=== PATIENT | male | born 1995 | race Caucasian/White ===

== ENCOUNTER 2017-08-20 20:27 | Observation (INO) | payer OTHER ==
[~2017-08-20] VITALS: Ht 180.3 cm; Wt 68.0 kg
[2017-08-20 20:40] VITALS: BP 123/65; PULSE 114; RESP 20; TEMP 98.3; O2SAT 100
[2017-08-20] MEDS ORDERED: SODIUM CHLORIDE 0.9% FLUSH 10 ML FLUSH IVF PRN (21:00)
[2017-08-20 21:01] VITALS: RESP 19; O2SAT 98
[2017-08-20] MEDS ORDERED: LORazepam 2 MG/ML VIAL IV PUSH PRN (21:30)
[2017-08-20] MEDS ORDERED: SODIUM CHLORIDE 0.9% FLUSH 10 ML FLUSH IV FLUSH PRN (21:30)
[2017-08-20] MEDS ORDERED: NALOXONE HCL 0.4 MG/ML AMP IV PUSH PRN (21:30)
[2017-08-20] MEDS ORDERED: levETIRAcetam INJ 100 ML IV ONE (21:30)
[2017-08-20 21:56] LABS: AUTOMATED NEUTROPHIL # 5.6 TH/MM3 (1.8-7.7); BASOPHIL % 0.2 % (0.0-2.0); EOSINOPHIL # 0.1 TH/MM3 (0-0.4); EOSINOPHIL % 0.8 % (0.0-4.0); HEMATOCRIT 40.1 % (39.0-51.0); HEMOGLOBIN 13.8 GM/DL (13.0-17.0); LYMPH % 23.4 % (9.0-44.0); LYMPHOCYTE # 1.9 TH/MM3 (1.0-4.8); MEAN CELL VOLUME 87.7 FL (80.0-100.0); MEAN CORPUSCULAR HEMOGLOBIN 30.2 PG (27.0-34.0); MEAN CORPUSCULAR HGB CONC 34.5 % (32.0-36.0); MEAN PLATELET VOLUME 8.2 FL (7.0-11.0); MONO % 6.7 % (0.0-8.0); MONOCYTE # 0.5 TH/MM3 (0-0.9); NEUT % 68.9 % (16.0-70.0); PLATELET COUNT 320 TH/MM3 (150-450); RED BLOOD COUNT 4.57 MIL/MM3 (4.50-5.90); RED CELL DISTRIBUTION WIDTH 12.7 % (11.6-17.2); WHITE BLOOD COUNT 8.1 TH/MM3 (4.0-11.0)
--- NOTE | 2017-08-20 22:04 | PD ---
HPI . 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 Patient was working out in the gym, when the locker room and subsequently had a seizure. No head injury. Patient states he feels fine now. Short postictal phase as noted by bystanders. Patient denies having headache or any signs of head injury, any visual changes other than his normal as noted above, no focal weakness numbness or tingling, no incontinence, tongue biting. patient had no prodromal illnesses head injuries, headache. No family history of seizures. [facility] Past Medical History Narrative Medical Past medical history reviewed Diminished Hearing: No Neurologic: Yes (OCULAR MOTOR APRAXIA) Seizures: Yes Tetanus Vaccination: > 5 Years Influenza Vaccination: No Social History Alcohol Use: No Tobacco Use: No Substance Use: No Allergies-Medications (Allergen,Severity, Reaction): Coded Allergies: No Known Allergies (Unverified , 08/20/17) Narrative Medication Allergies and medications reviewed Review of Systems Except as stated in HPI: all other systems reviewed are Neg General / Constitutional: No: Fever Eyes: No: Visual changes HENT: No: Headaches Cardiovascular: No: Chest Pain or Discomfort Respiratory: No: Shortness of Breath Gastrointestinal: No: Abdominal Pain Genitourinary: No: Dysuria Musculoskeletal: No: Pain Skin: No Rash Neurologic: Positive: Seizures, No: Weakness, Incontinence Psychiatric: No: Depression Endocrine: No: Polydipsia Hematologic/Lymphatic: No: Easy Bruising Physical Exam Narrative GENERAL: Awake alert oriented 3 no acute distress. SKIN: Warm and dry. Color is normal no diaphoresis cyanosis or pallor HEAD: Atraumatic. Normocephalic. EYES: Pupils equal and round. No scleral icterus. No injection or drainage. 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 No change as per patient ENT: No nasal bleeding or discharge. Mucous membranes pink and moist. TMs clear 2 NECK: Trachea midline. No JVD. Supple nontender full range of motion CARDIOVASCULAR: Regular rate and rhythm. S1-S2 no murmurs or gallops RESPIRATORY: No accessory muscle use. Clear to auscultation. Breath sounds equal bilaterally. GASTROINTESTINAL: Abdomen soft, non-tender, nondistended. Hepatic and splenic margins not palpable. MUSCULOSKELETAL: Extremities without clubbing, cyanosis, or edema. No obvious deformities. NEUROLOGICAL: Awake and alert. No obvious cranial nerve deficits. Motor grossly within normal limits. Five out of 5 muscle strength in the arms and legs. Normal speech. PSYCHIATRIC: Appropriate mood and affect; insight and judgment normal. Data Data Last Documented VS Vital Signs Date Time Temp Pulse Resp B/P (MAP) Pulse Ox O2 Delivery O2 Flow Rate FiO2 08/20/17 21:01 19 98 Room Air 08/20/17 20:40 98.3 114 123/65 (84) Orders Orders Complete Blood Count With Diff (08/20/17 20:58) Blood Glucose (08/20/17 20:58) Ecg Monitoring (08/20/17 20:58) Iv Access Insert/Monitor (08/20/17 20:58) Oximetry (08/20/17 20:58) Comprehensive Metabolic Panel (08/20/17 20:58) Sodium Chloride 0.9% Flush (Ns Flush) (08/20/17 21:00) Ua Includes Microscopic (08/20/17 20:58) Thyroid Stimulating Hormone (08/20/17 21:02) Mri Brain W&W/O Contrast (08/20/17 ) Mra Brain W/O Contrast (Cow) (08/20/17 ) Eeg Study (08/20/17 ) Levetiracetam Inj (Keppra Inj) (08/20/17 21:30) Consult Neurology (08/20/17 ) Admit Order (Ed Use Only) (08/20/17 21:26) Labs Laboratory Tests Test 08/20/17 21:05 [facility] Medical Decision Making Medical Screen Exam Complete: Yes Emergency Medical Condition: Yes Medical Record Reviewed: Yes Differential Diagnosis Ocular motor apraxia, new onset seizures Narrative Course New-onset seizures as noted above, discussed with Dr. Michael bryant from neurology. Care plan developed, MRI brain with and without contrast, MRA brain without, EEG. Load with Keppra 1 g IV piggyback. Care plan discussed with patient who is amenable to same.Contraindications for MRI discussed and screening performed by SHAGUFTA Hilton Case discussed with hospitalist service, admitted under observation status Diagnosis Primary Impression: New onset seizure Admitting Information Admitting Physician Requests: Observation Condition: Rajiv Cyr MD Aug 20, 2017 22:04
[2017-08-20 22:47] LABS: ALBUMIN 4.1 GM/DL (3.4-5.0); AST (GOT) 20 U/L (15-37); BICARBONATE 26.5 MEQ/L (21.0-32.0); BLOOD UREA NITROGEN 15 MG/DL (7-18); CALCIUM 8.8 MG/DL (8.5-10.1); CHLORIDE 104 MEQ/L (98-107); CREATININE 1.01 MG/DL (0.60-1.30); GLOMERULAR FILTRATION RATE 93 ML/MIN (>89); GLUCOSE,RANDOM 92 MG/DL (74-106); SODIUM (NA) 139 MEQ/L (136-145)
--- NOTE | 2017-08-20 22:47 | RADRPT ---
EXAM DATE/TIME: 08/20/2017 22:04 [facility] COMPARISON: No previous studies available for comparison. INDICATIONS : Seizures. New onset seizures. MEDICAL HISTORY : Oculomotor apraxia. SURGICAL HISTORY : Knee. ENCOUNTER: Initial ACUITY: 1 day PAIN SCORE: 0/10 LOCATION: cranial Please note a normal MRA of the brain does not entirely exclude the possibility of a small aneurysm, nor the possibility of distal intracranial vessel disease. TECHNIQUE: 3D time of flight MRA was performed. Source images, multiplanar STS MIP, and 3D volume MIP reconstru ctions were reviewed. FINDINGS: There is excellent visualization of the major intracranial arteries out to the second-order branch ve ssels. There is no evidence for aneurysm, vessel truncation or stenosis, and no evidence for vascula r malformation. CONCLUSION: Normal examination. Nick Vega Jr., MD on August 20, 2017 at 22:42 Board Certified Radiologist. This report was verified electronically.
--- NOTE | 2017-08-20 22:49 | RADRPT ---
EXAM DATE/TIME: 08/20/2017 22:04 [facility] COMPARISON: No previous studies available for comparison. INDICATIONS : Seizures. New onset seizures. MEDICAL HISTORY : Oculomotor apraxia. SURGICAL HISTORY : Knee. ENCOUNTER: Initial ACUITY: 1 day PAIN SCORE: 0/10 LOCATION: cranial TECHNIQUE: Multiplanar, multisequence MRI of the brain was performed without contrast. FINDINGS: CEREBRUM: The ventricles are normal for age. No evidence of midline shift, mass lesion, hemorrhage or acute in farction. No extraaxial fluid collections are seen. The pituitary gland and suprasellar cistern are normal in configuration. WHITE MATTER: No significant signal abnormalities are seen in the white matter. POSTERIOR FOSSA: The cerebellum and brainstem are intact. The 4th ventricle is midline. The cerebellopontine angle is unremarkable. The cerebellar tonsils are normal in position. DIFFUSION IMAGING: No focal areas of restricted diffusion are seen. No evidence of acute infarction. EXTRACRANIAL: The visualized portions of the orbits and paranasal sinuses are unremarkable. CONCLUSION: Normal examination. Nick Vega Jr., MD on August 20, 2017 at 22:44 Board Certified Radiologist. This report was verified electronically.
[2017-08-20 22:50] LABS: ALKALINE PHOSPHATASE 69 U/L (45-117); ALT (GPT) 33 U/L (12-78); TOTAL BILIRUBIN ADULT 0.3 MG/DL (0.2-1.0); TOTAL PROTEIN 7.5 GM/DL (6.4-8.2)
[2017-08-20 23:26] VITALS: BP 134/70; PULSE 103; RESP 16; TEMP 97.6; O2SAT 98
[2017-08-20 23:33] LABS: BILIRUBIN, URINE NEG (NEG); BLOOD, URINE NEG (NEG); GLUCOSE,URINE NEG (NEG); KETONE, URINE NEG (NEG); MUCUS URINE FEW /lpf (OCC); NITRITE,URINE NEG (NEG); URINE COLOR LIGHT-YELLOW (YELLW/STRAW); URINE LEUKOCYTE ESTERASE NEG (NEG)
[2017-08-20 23:35] VITALS: PULSE 103
--- NOTE | 2017-08-21 04:19 | HHI.HP ---
HPI Service [facility] Primary Care Physician No Primary Care Physician Admission Diagnosis New onset Seizures Diagnoses: Travel History International Travel<30 Days: No Contact w/Intl Traveler <30 Da: No Traveled to Known Affected Are: No History of Present Illness History from patient, ER physician communication, and review of medical records. had seizure at gym stated he was not doing anything then- not exercising or weight lifting no aura was told he had seizure no recollection of it bit his tongue no urinary or bowel incontinence no prior hx of seizure a week ago, had fever little cough then but no sinus symptoms no urine or bowel problems took otc fever meds, no antbiotiocs Review of Systems Except as stated in HPI: all other systems reviewed are Neg Past Family Social History Past Medical History occulomotor apraxia with speech impediment alone as the manifestation according to patient Past Surgical History left acl removed Allergies: Coded Allergies: No Known Allergies (Unverified , 08/20/17) Family History none that he knows of Social History no smoking/ etoh abuse/ drug abuse Physical Exam Vital Signs Vital Signs Date Time Temp Pulse Resp B/P (MAP) Pulse Ox O2 Delivery O2 Flow Rate FiO2 08/20/17 23:35 103 08/20/17 23:26 97.6 103 16 134/70 (91) 98 08/20/17 21:01 19 98 Room Air 08/20/17 20:50 100 Room Air 08/20/17 20:40 98.3 114 20 123/65 (84) 100 Physical Exam GENERAL: This is a well-nourished, well-developed patient, in no apparent distress. SKIN: No rashes, ecchymoses or lesions. Cool and dry. HEAD: Atraumatic. Normocephalic. No temporal or scalp tenderness. EYES: Pupils equal round and reactive. Extraocular motions intact. No scleral icterus. No injection or drainage. ENT: Nose without bleeding, purulent drainage or septal hematoma. Airway patent. NECK: Trachea midline. No JVD or lymphadenopathy. Supple, nontender, no meningeal signs. CARDIOVASCULAR: Regular rate and rhythm without murmurs, gallops, or rubs. RESPIRATORY: Clear to auscultation. Breath sounds equal bilaterally. No wheezes , rales, or rhonchi. GASTROINTESTINAL: Abdomen soft, non-tender, nondistended. No guarding. MUSCULOSKELETAL: Extremities without clubbing, cyanosis, or edemaNo calf tenderness. NEUROLOGICAL: Awake and alert. Motor and sensory grossly within normal limits. Normal speech. Laboratory Laboratory Tests Test 08/20/17 21:05 08/20/17 23:07 White Blood Count 8.1 Red Blood Count 4.57 Hemoglobin 13.8 Hematocrit 40.1 Mean Corpuscular Volume 87.7 Mean Corpuscular Hemoglobin 30.2 Mean Corpuscular Hemoglobin Concent 34.5 Red Cell Distribution Width 12.7 Platelet Count 320 Mean Platelet Volume 8.2 Neutrophils (%) (Auto) 68.9 Lymphocytes (%) (Auto) 23.4 Monocytes (%) (Auto) 6.7 Eosinophils (%) (Auto) 0.8 Basophils (%) (Auto) 0.2 Neutrophils # (Auto) 5.6 Lymphocytes # (Auto) 1.9 Monocytes # (Auto) 0.5 Eosinophils # (Auto) 0.1 Basophils # (Auto) 0.0 CBC Comment DIFF FINAL Differential Comment Blood Urea Nitrogen 15 Creatinine 1.01 Random Glucose 92 Total Protein 7.5 Albumin 4.1 Calcium Level 8.8 Alkaline Phosphatase 69 Aspartate Amino Transf (AST/SGOT) 20 Alanine Aminotransferase (ALT/SGPT) 33 Total Bilirubin 0.3 Sodium Level 139 Potassium Level 3.7 Chloride Level 104 Carbon Dioxide Level 26.5 Anion Gap 9 Estimat Glomerular Filtration Rate 93 Thyroid Stimulating Hormone 3rd Gen 2.070 Urine Color LIGHT-YELLOW Urine Turbidity CLEAR Urine pH 5.0 Urine Specific [place] 1.007 Urine Protein NEG Urine Glucose (UA) NEG Urine Ketones NEG Urine Occult Blood NEG Urine Nitrite NEG Urine Bilirubin NEG Urine Urobilinogen LESS THAN 2.0 Urine Leukocyte Esterase NEG Urine WBC 1 Urine Mucus FEW Microscopic Urinalysis Comment CULT NOT INDICATED Result Diagram: 08/20/17210408/20/172104 Imaging Last 48 hours Impressions Head Magnetic Resonance Angiography 08/20/17 0000 Signed Impressions: Service Date/Time: Sunday, August 20, 2017 22:04 - CONCLUSION: Normal examination. Nick Vega Jr., MD Brain MRI 08/20/17 0000 Signed Impressions: Service Date/Time: Sunday, August 20, 2017 22:04 - CONCLUSION: Normal examination. MD Israel Quezada Jr. VTE Risk Assessment Caprini VTE Risk Assessment: Mod/High Risk (score >= 2) Caprini Risk Assessment Model Point Value = 1 Point Value = 2 Point Value = 3 Point Value = 5 Age 41-60 Minor surgery BMI > 25 kg/m2 Swollen legs Varicose veins or History of unexplained or recurrent spontaneous Oral contraceptives or hormone replacement Sepsis (< 1 month) Serious lung disease, including pneumonia (< 1 month) Abnormal pulmonary function Acute myocardial infarction Congestive heart failure (< 1 month) History of inflammatory bowel disease Medical patient at bed rest Age 61-74 Arthroscopic surgery Major open surgery (> 45 min) Laparoscopic surgery (> 45 min) Malignancy Confined to bed (> 72 hours) Immobilizing plaster cast Central venous access Age >= 75 History of VTE Family history of VTE Factor V Leiden Prothrombin [id number] Lupus anticoagulant Anticardiolipin antibodies Elevated serum homocysteine Heparin-induced thrombocytopenia Other congenital or acquired thrombophilia Stroke (< 1 month) Elective arthroplasty Hip, pelvis, or leg fracture Acute spinal cord injury (< 1 month) Prophylaxis Regimen Total Risk Factor Score Risk Level Prophylaxis Regimen 0-1 Low Early ambulation 2 Moderate Order ONE of the following: *Sequential Compression Device (SCD) *Heparin 5000 units SQ BID 3-4 Higher Order ONE of the following medications: *Heparin 5000 units SQ TID *Enoxaparin/Lovenox 40 mg SQ daily (WT < 150 kg, CrCl > 30 mL/min) *Enoxaparin/Lovenox 30 mg SQ daily (WT < 150 kg, CrCl > 10-29 mL/min) *Enoxaparin/Lovenox 30 mg SQ BID (WT < 150 kg, CrCl > 30 mL/min) AND/OR *Sequential Compression Device (SCD) 5 or more Highest Order ONE of the following medications: *Heparin 5000 units SQ TID (Preferred with Epidurals) *Enoxaparin/Lovenox 40 mg SQ daily (WT < 150 kg, CrCl > 30 mL/min) *Enoxaparin/Lovenox 30 mg SQ daily (WT < 150 kg, CrCl > 10-29 mL/min) *Enoxaparin/Lovenox 30 mg SQ BID (WT < 150 kg, CrCl > 30 mL/min) AND *Sequential Compression Device (SCD) Assessment and Plan Assessment and Plan Impression: New-onset witnessed seizure with tongue bite History of oculomotor apraxia with speech impediment Plan: Seizure precautions. Ativan when necessary for seizures. EEG in a.m. Brain MRI and MRA of the brain reports personally reviewed. No evidence of mass /hemorrhage/edema. Neurology Consult. Patient was loaded with Keppra in ER. Continue Keppra 500 mg by mouth every 12 hours. No driving for next 6 months. Patient is explained. DVT prophylaxis with ambulation. Discussed Condition With Patient, ER physician, nursing staff Diamond De Souza MD Aug 21, 2017 04:19
[2017-08-21 04:39] VITALS: BP 126/60; PULSE 88; RESP 17; TEMP 97.7; O2SAT 99
[2017-08-21 08:00] VITALS: PULSE 89
--- NOTE | 2017-08-21 08:04 | HHI.PR ---
Subjective Remarks Follow up on patient with seizure. Patient seen and examined. Patient asleep but easily awakens to voice. He denies any recurrence of seizure activity. States he feels well. Denies any complaints. Denies any headache, vision changes, lightheadedness, dizziness, palpitations, chest pain or shortness of breath. Denies any nausea, vomiting or abdominal pain. States he has no previous history of seizure disorder. Denies any fever or chills. Does report history of upper respiratory infection with a fever about a week ago. Objective Vitals Vital Signs Date Time Temp Pulse Resp B/P (MAP) Pulse Ox O2 Delivery O2 Flow Rate FiO2 08/21/17 04:39 97.7 88 17 126/60 (82) 99 08/20/17 23:35 103 08/20/17 23:26 97.6 103 16 134/70 (91) 98 08/20/17 21:01 19 98 Room Air 08/20/17 20:50 100 Room Air 08/20/17 20:40 98.3 114 20 123/65 (84) 100 I/O 08/20/17 08/20/17 08/20/17 08/21/17 08/21/17 08/21/17 07:00 15:00 23:00 07:00 15:00 23:00 Output Total 600 ml Balance -600 ml Output Urine Total 600 ml Result Diagram: 08/20/17210408/20/172104 Imaging Last Impressions Head Magnetic Resonance Angiography 08/20/17 0000 Signed Impressions: Service Date/Time: Sunday, August 20, 2017 22:04 - CONCLUSION: Normal examination. Nick Vega Jr., MD Brain MRI 08/20/17 0000 Signed Impressions: Service Date/Time: Sunday, August 20, 2017 22:04 - CONCLUSION: Normal examination. Nick Vega Jr., MD Objective Remarks GENERAL: Well-nourished, well-developed young male patient in NAD. Awake and alert. SKIN: Warm and dry. No rash. HEAD: Normocephalic. Atraumatic. EYES: PERRLA. No scleral icterus. No injection or drainage. ENT: No nasal bleeding or discharge. Mucous membranes pink and moist. NECK: Supple. Trachea midline. CARDIOVASCULAR: Regular rate and rhythm. S1, S2 noted. No murmur appreciated. RESPIRATORY: Nonlabored. Clear to auscultation. Breath sounds equal bilaterally. GASTROINTESTINAL: Abdomen soft, non-tender, nondistended. Normoactive bowel sounds x4. MUSCULOSKELETAL: No obvious deformities. Extremities without clubbing, cyanosis , or edema. NEUROLOGICAL: Awake and alert. Able to move all extremities spontaneously. No focal neurologic findings appreciated. Motor and sensory function intact. Slight speech impediment. PSYCHIATRIC: Appropriate mood and affect; insight and judgment normal. Medications and IVs Current Medications Medications (Trade) Dose Ordered Sig/Julieta Route Start Time Stop Time Status Last Admin (NS Flush) 2 ml UNSCH PRN IVF 08/20/17 21:00 (NS Flush) 2 ml UNSCH PRN IV FLUSH 08/20/17 21:30 (NS Flush) 2 ml BID IV FLUSH 08/21/17 09:00 (Narcan Inj) 0.4 mg UNSCH PRN IV PUSH 08/20/17 21:30 (Ativan Inj) 1 mg Q15M PRN IV PUSH 08/20/17 21:30 A/P Assessment and Plan New onset seizure - Neurology consulted, appreciate recommendations - EEG study - given loading dose of Keppra in the ED. Continue on Keppra 500mg BID - no driving x 6 months - Ativan prn seizure activity - seizure precautions DVT prophylaxis - bilateral SCD/MAYELA hose Patient cleared for discharge from neurology standpoint Discharge patient to home Condition on discharge: Improved Regular Diet as tolerated Ad Kristina activity NO driving, climbing heights, swimming alone or caring for young children unassisted for at least 6 months Follow-up with primary care physician and neurology Scarlett Camacho Aug 21, 2017 08:04
[2017-08-21 08:26] VITALS: BP 136/67; PULSE 89; RESP 16; TEMP 97.6; O2SAT 99
[2017-08-21] MEDS ORDERED: SODIUM CHLORIDE 0.9% FLUSH 10 ML FLUSH IV FLUSH SCH (09:00)
[2017-08-21] MEDS ORDERED: levETIRAcetam 500 MG TAB PO ONE (09:45)
[2017-08-21] MEDS ORDERED: LEVE500 PO (11:08)
[2017-08-21 12:00] VITALS: BP 131/64; PULSE 99; RESP 15; TEMP 98.7; O2SAT 98
--- NOTE | 2017-08-21 15:37 | MB ---
cc: NORMA STAFFORD M.D. DATE OF CONSULTATION 08/21/2017 DATE OF 1995 REASON FOR CONSULTATION Seizure. HISTORY OF PRESENT ILLNESS The patient is a 22-year-old male, student at [employer], who apparently had a seizure while at the gym. He states he was not doing anything exerting but had a seizure, woke up, there was no one there to witness it, and he called for 911. He did bite his tongue. No urinary or bowel incontinence. He denies any history of epilepsy. He denies any family history of epilepsy. Denies any head trauma. He states he had a respiratory infection about a week ago and was using some NyQuil which he has not used in quite a few days. He denies any drug abuse. He states he lives on campus and has a roommate. He denies being sleep deprived. PAST MEDICAL HISTORY Ocular motor apraxia with speech impediment. PAST SURGICAL HISTORY Left ACL surgery. ALLERGIES None reported. FAMILY HISTORY Noncontributory per patient. SOCIAL HISTORY Does not smoke, use drugs or drink. MEDICATIONS Just NyQuil about a week ago. PHYSICAL EXAMINATION VITAL SIGNS: He has been afebrile. Temperature currently 98.7, pulse 99, respiratory rate 15, blood pressure 131/64, satting 98% on room air. NECK: Supple. I do not appreciate any bruits. HEART: Regular. NEUROLOGIC: He is awake, alert and oriented. He does have a speech impediment. He is able to move his eyes but difficulty following. His pupils are reactive. Face symmetrical otherwise. There is a mild abrasion over the right lateral tongue. Motor-joseph no drift, no leg lag. Cerebellar normal. Toes downgoing. DTRs are 1-2+. Sensory normal. Gait is withheld. LABORATORY His labs are reviewed. CBC is normal. Chemistries are intact. TSH is normal. Urine is negative. There is no urine drug screen. IMAGING Brain MRI: Normal exam. MRA [place] was normal as well. EEG EEG was completed. I do not have the report thus far. IMPRESSION Likely new onset seizure in a 22-year-old male. Etiology at this point is unknown, may be medicine related due to the NyQuil, however, he denies taking it recently. PLAN/RECOMMENDATIONS Recommendations are to have him discharged home without any medication for this one event. He is not to drive at least for six months, not to swim alone, climb heights, etc. He is to see me in 1-2 weeks in the office for follow-up. Anticipate discharge this afternoon. The EEG was just completed. MD ALENA Mcintyre/INDRA /2:30 PM /3:01 PM
[2017-08-21] MEDS ORDERED: levETIRAcetam 500 MG TAB PO SCH (21:00)
--- NOTE | 2017-08-21 21:35 | MG ---
cc: BRITTNY LOJA Lab No: Date: 08/21/2017 Age: Sex: M Race: ELECTROENCEPHALOGRAM NUMBER [id number] INTRODUCTION A 22-year-old, ocular motor apraxia. Keppra. A 9 Hz, 60 microvolt symmetric posterior rhythm is noted. The recording overall is synchronous and symmetric. There were no hemisphere asymmetries. Photic stimulation was performed without significant posterior driving. Hyperventilation was performed without significant change in the background. IMPRESSION Normal awake EEG. No evidence for a focal or diffuse abnormality. MD DORYS Corbin/BYRON /6:06 PM /9:13 PM
== END 2017-08-21 11:07 | disposition home or self-care (01) ==
LOC: NEPC 20:27 → NEDA 21:28 → NEDH 08-21 02:07
PROVIDERS: ADMIT Hospitalist; ATTEND Hospitalist
DX: R56.9 Unspecified convulsions (principal)
CPT/HCPCS: 70544; 70551; 80053; 81001; 84443; 85025; 95819; 96365; 99285; G0378; J1953

== ENCOUNTER 2017-08-30 06:28 | Emergency (ER) | payer OTHER ==
[~2017-08-30] VITALS: Ht 182.9 cm; Wt 68.0 kg
[2017-08-30 06:39] VITALS: BP 141/64; PULSE 120; RESP 16; TEMP 98.2; O2SAT 99
[2017-08-30 07:10] LABS: AUTOMATED NEUTROPHIL # 3.5 TH/MM3 (1.8-7.7); BASOPHIL % 0.6 % (0.0-2.0); EOSINOPHIL # 0.1 TH/MM3 (0-0.4); EOSINOPHIL % 1.4 % (0.0-4.0); HEMATOCRIT 42.1 % (39.0-51.0); HEMOGLOBIN 14.1 GM/DL (13.0-17.0); LYMPH % 39.1 % (9.0-44.0); LYMPHOCYTE # 2.7 TH/MM3 (1.0-4.8); MEAN CELL VOLUME 88.7 FL (80.0-100.0); MEAN CORPUSCULAR HEMOGLOBIN 29.8 PG (27.0-34.0); MEAN CORPUSCULAR HGB CONC 33.6 % (32.0-36.0); MEAN PLATELET VOLUME 8.4 FL (7.0-11.0); MONO % 7.9 % (0.0-8.0); MONOCYTE # 0.5 TH/MM3 (0-0.9); PLATELET COUNT 310 TH/MM3 (150-450); RED BLOOD COUNT 4.74 MIL/MM3 (4.50-5.90); RED CELL DISTRIBUTION WIDTH 13.1 % (11.6-17.2); WHITE BLOOD COUNT 6.9 TH/MM3 (4.0-11.0)
[2017-08-30 07:22] LABS: BICARBONATE 23.4 MEQ/L (21.0-32.0); CALCIUM 8.8 MG/DL (8.5-10.1); CREATININE 0.97 MG/DL (0.60-1.30)
--- NOTE | 2017-08-30 07:43 | PD ---
HPI Chief Complaint: Seizure Time Seen by Provider: 07:20 Travel History International Travel<30 days: No Contact w/Intl Traveler<30days: No Traveled to known affect area: No History of Present Illness HPI The patient had sudden onset of [tonic clonic] seizure activity [just] prior to arrival. The seizure activity lasted [about a 2 minutes]. This was witnessed by [roommate]. The patient fully lost consciousness, but then gradually regained the usual mental status. The patient complains of [mild] headache and feels somewhat tired, but denies skeletal injuries or any other significant pain. There was [no] tongue biting and [no] incontinence. The patient denies any numbness or focal weakness now. patient denies ingestion or taking any medications currently. patient is an [employer] student who was seen and worked up/admitted to [facility] [place] on mid august for new onset seizure by Dr childers, no medications were started then. PFSH Past Medical History Diminished Hearing: No Neurologic: Yes (OCULAR MOTOR APRAXIA) Seizures: Yes Social History Alcohol Use: No Tobacco Use: No Substance Use: No Allergies-Medications (Allergen,Severity, Reaction): Coded Allergies: No Known Allergies (Unverified , 08/20/17) Reported Meds & Prescriptions Reported Meds & Active Scripts Active No Active Prescriptions or Reported Medications Review of Systems Except as stated in HPI: all other systems reviewed are Neg Neurologic: Positive: Seizures Physical Exam Narrative GENERAL: SKIN: Warm and dry. small puncture wound on right eyebrow HEAD: Atraumatic. Normocephalic. EYES: Pupils equal and round. No scleral icterus. No injection or drainage. ENT: No nasal bleeding or discharge. Mucous membranes pink and moist. no tongue laceration NECK: Trachea midline. No JVD. CARDIOVASCULAR: Regular rate and rhythm. RESPIRATORY: No accessory muscle use. Clear to auscultation. Breath sounds equal bilaterally. GASTROINTESTINAL: Abdomen soft, non-tender, nondistended. MUSCULOSKELETAL: Extremities without clubbing, cyanosis, or edema. No obvious deformities. NEUROLOGICAL: Awake and alert. No obvious cranial nerve deficits. Motor grossly within normal limits. Five out of 5 muscle strength in the arms and legs. speech impediment (chronic). PSYCHIATRIC: Appropriate mood and affect; insight and judgment normal. Data Data Last Documented VS Vital Signs Date Time Temp Pulse Resp B/P (MAP) Pulse Ox O2 Delivery O2 Flow Rate FiO2 1/26/18 08:01 108 16 124/64 (84) 99 Room Air 08/30/17 06:58 2.00 08/30/17 06:39 98.2 Orders Orders Blood Glucose (08/30/17 06:42) Oximetry (08/30/17 06:42) Iv Access Insert/Monitor (08/30/17 06:42) Ecg Monitoring (08/30/17 06:42) Oxygen Administration (08/30/17 06:42) Basic Metabolic Panel (Bmp) (08/30/17 06:42) Complete Blood Count With Diff (08/30/17 06:42) Drug Screen, Random Urine (08/30/17 06:42) Urinalysis - C+S If Indicated (08/30/17 06:42) Ct Brain W/O Iv Contrast(Rout) (08/30/17 ) Ct Cerv Spine W/O Contrast (08/30/17 07:21) Levetiracetam Inj (Keppra Inj) (08/30/17 09:00) Labs Laboratory Tests Test 08/30/17 06:45 08/30/17 09:40 White Blood Count 6.9 TH/MM3 Red Blood Count 4.74 MIL/MM3 Hemoglobin 14.1 GM/DL Hematocrit 42.1 % Mean Corpuscular Volume 88.7 FL Mean Corpuscular Hemoglobin 29.8 PG Mean Corpuscular Hemoglobin Concent 33.6 % Red Cell Distribution Width 13.1 % Platelet Count 310 TH/MM3 Mean Platelet Volume 8.4 FL Neutrophils (%) (Auto) 51.0 % Lymphocytes (%) (Auto) 39.1 % Monocytes (%) (Auto) 7.9 % Eosinophils (%) (Auto) 1.4 % Basophils (%) (Auto) 0.6 % Neutrophils # (Auto) 3.5 TH/MM3 Lymphocytes # (Auto) 2.7 TH/MM3 Monocytes # (Auto) 0.5 TH/MM3 Eosinophils # (Auto) 0.1 TH/MM3 Basophils # (Auto) 0.0 TH/MM3 CBC Comment DIFF FINAL Differential Comment Blood Urea Nitrogen 20 MG/DL Creatinine 0.97 MG/DL Random Glucose 92 MG/DL Calcium Level 8.8 MG/DL Sodium Level 141 MEQ/L Potassium Level 3.9 MEQ/L Chloride Level 108 MEQ/L Carbon Dioxide Level 23.4 MEQ/L Anion Gap 10 MEQ/L Estimat Glomerular Filtration Rate 98 ML/MIN Urine Color YELLOW Urine Turbidity CLEAR Urine pH 5.5 Urine Specific [place] 1.024 Urine Protein TRACE mg/dL Urine Glucose (UA) NEG mg/dL Urine Ketones TRACE mg/dL Urine Occult Blood NEG Urine Nitrite NEG Urine Bilirubin NEG Urine Urobilinogen LESS THAN 2.0 MG/DL Urine Leukocyte Esterase NEG Urine WBC 1 /hpf Urine Squamous Epithelial Cells <1 /hpf Urine Mucus FEW /lpf Microscopic Urinalysis Comment CULT NOT INDICATED MDM Medical Decision Making Medical Screen Exam Complete: Yes Emergency Medical Condition: Yes Medical Record Reviewed: Yes Differential Diagnosis seizure activity v ich v skull fx v neck fx v neck dislocation Narrative Course normal cbc and electrolytes....patient had previously had EEG, MRI/MRA of brain which were neg as part of his midjanuary new seizure workup.....today ct head/ neck performed due to fall and bht post seizure did not show any ich/skull fx/ neck fx Physician Communication Physician Communication dr childers called to ask about any additions to medication, will start on keppra empirically. Diagnosis Primary Impression: New onset seizure Referrals: Brianne Childers MD make follow up appointment in the next week or so to adjust your keppra Patient Instructions: General Instructions, New-Onset Seizure in Adults (ED) Additional Instructions: today you are started on an antiseizure medicine called keppra. it has to be adjusted and monitored so you need to see Dr Childers within 14 days. Again as previously explained by Dr childers, no swimming, no driving, no operating heavy machinery for now. Your small cut does not require stitches Scripts Levetiracetam (Keppra) 500 Mg Tab 500 MG PO BID for Control Seizures, #30 TAB 0 Refills Prov: Candido Lujan MD 08/30/17 Disposition: 01 DISCHARGE HOME Condition: Stable Candido Lujan MD Aug 30, 2017 07:43
[2017-08-30 08:01] VITALS: BP 124/64; PULSE 108; RESP 16; O2SAT 99
--- NOTE | 2017-08-30 08:18 | RADRPT ---
EXAM DATE/TIME: 08/30/2017 08:04 [facility] COMPARISON: No previous studies available for comparison. INDICATIONS : Seizure today. RADIATION DOSE: 40.96 CTDIvol (mGy) MEDICAL HISTORY : Seizures. SURGICAL HISTORY : None. ENCOUNTER: Initial ACUITY: 1 day PAIN SCALE: 0/10 LOCATION: cranial TECHNIQUE: Multiple contiguous axial images were obtained of the head. Using automated exposure control and adj ustment of the mA and/or kV according to patient size, radiation dose was kept as low as reasonably a chievable to obtain optimal diagnostic quality images. DICOM format image data is available electro nically for review and comparison. FINDINGS: CEREBRUM: The ventricles are normal for age. No evidence of midline shift, mass lesion, hemorrhage or acute in farction. No extra-axial fluid collections are seen. POSTERIOR FOSSA: The cerebellum and brainstem are intact. The 4th ventricle is midline. The cerebellopontine angle i s unremarkable. EXTRACRANIAL: The visualized portion of the orbits is intact. There is right supraorbital soft tissue swelling. No underlying fracture. SKULL: The calvaria is intact. No evidence of skull fracture. CONCLUSION: 1. No acute intracranial abnormality. 2. Right supraorbital soft tissue swelling. Nick Vega Jr., MD on August 30, 2017 at 8:15 Board Certified Radiologist. This report was verified electronically.
--- NOTE | 2017-08-30 08:26 | RADRPT ---
EXAM DATE/TIME: 08/30/2017 08:04 [facility] COMPARISON: No previous studies available for comparison. INDICATIONS : Seizure today. Neck pain. RADIATION DOSE: 13.65 CTDIvol (mGy) MEDICAL HISTORY : Seizures. SURGICAL HISTORY : None. ENCOUNTER: Initial ACUITY: 1 day PAIN SCALE: 2/10 LOCATION: neck TECHNIQUE: Volumetric scanning of the cervical spine was performed. Multiplanar reconstructions in the sagittal, coronal and oblique axial planes were performed. Using automated exposure control and adjustment o f the mA and/or kV according to patient size, radiation dose was kept as low as reasonably achievable to obtain optimal diagnostic quality images. DICOM format image data is available electronically f or review and comparison. FINDINGS: VERTEBRAE: Normal vertebral body height. ALIGNMENT: No evidence of subluxation. C2-C3: The bony spinal canal is normal in size. No evidence of disc bulge or herniation. The neural forami na are bilaterally patent. C3-C4: The bony spinal canal is normal in size. No evidence of disc bulge or herniation. The neural forami na are bilaterally patent. C4-C5: The bony spinal canal is normal in size. No evidence of disc bulge or herniation. The neural forami na are bilaterally patent. C5-C6: The bony spinal canal is normal in size. No evidence of disc bulge or herniation. The neural forami na are bilaterally patent. C6-C7: The bony spinal canal is normal in size. No evidence of disc bulge or herniation. The neural forami na are bilaterally patent. C7-T1: The bony spinal canal is normal in size. No evidence of disc bulge or herniation. The neural forami na are bilaterally patent. CONCLUSION: 1. Normal examination. 2. No acute fracture identified. Alexx Greenwood MD on August 30, 2017 at 8:22 Board Certified Radiologist. This report was verified electronically.
[2017-08-30] MEDS ORDERED: levETIRAcetam INJ 500 MG in SODIUM CHLORIDE 0.9% INJ 100 ML IV ONE (09:00)
[2017-08-30 10:09] LABS: BILIRUBIN, URINE NEG (NEG); BLOOD, URINE NEG (NEG); GLUCOSE,URINE NEG (NEG); KETONE, URINE TRACE mg/dL (NEG); MUCUS URINE FEW /lpf (OCC); NITRITE,URINE NEG (NEG); PH, URINE 5.5 (5.0-8.5); SQUAMOUS EPITHELIAL CELL URINE <1 /hpf (0-5); URINE COLOR YELLOW (YELLW/STRAW); URINE LEUKOCYTE ESTERASE NEG (NEG)
[2017-08-30] MEDS ORDERED: LEVE500 PO (10:20)
== END 2017-08-30 11:52 | disposition home or self-care (01) ==
LOC: NEPC 06:28
DX: R56.9 Unspecified convulsions (principal); R51 Headache
CPT/HCPCS: 70450; 72125; 80048; 80307; 81001; 85025; 96365; 99285; J1953

== ENCOUNTER 2017-10-28 02:18 | Emergency (ER) | payer OTHER ==
[~2017-10-28] VITALS: Ht 180.3 cm; Wt 68.0 kg
[~2017-10-28 02:18] MED LIST: LEVE500 PO
[2017-10-28 02:27] VITALS: BP 126/70; PULSE 114; RESP 18; TEMP 98.2; O2SAT 99
[2017-10-28] MEDS ORDERED: KEPP750T PO (02:27)
[2017-10-28] MEDS ORDERED: LEVE500 PO (02:27)
--- NOTE | 2017-10-28 02:53 | PD ---
HPI Chief Complaint: Seizure Time Seen by Provider: 02:32 Travel History International Travel<30 days: No Contact w/Intl Traveler<30days: No Traveled to known affect area: No History of Present Illness HPI The patient is a 22 year old male who presents to the [facility] emergency department with a history of seizure activity that was witnessed prior to arrival. The patient was reportedly sleepy when he had a witnessed seizure. The patient has a known history of seizure disorder that was first diagnosed in August of this year. He is followed by Dr. Childers for his neurologic care. He reports that he last saw her just prior to spring and his nighttime dose of Keppra was increased to 750 mg. He takes 500 mg in the morning. He reports that yesterday he did have some nasal congestion and clear rhinorrhea. He reports that he is also having difficulty sleeping this evening. He denies having any known fevers or chills. He denies recalling missing any of his Keppra doses. He denies having any cough or congestion otherwise. He denies having any neck pain, chest pain, shortness of breath, abdominal pain, vomiting , diarrhea, urinary symptoms, or other neurologic symptoms. [facility] Past Medical History Narrative Medical The patient has a past medical history of seizure disorder, [employer] APR[employer] , speech impediment Diabetes: No Diminished Hearing: No Medical other: Yes (speech impediment) Neurologic: Yes (OCULAR MOTOR APRAXIA) Immunizations Current: Yes Seizures: Yes Tetanus Vaccination: Unknown Influenza Vaccination: No Past Surgical History Narrative Surgical The patient's past surgical history is significant for a tonsillectomy. Tonsillectomy: Yes Social History Alcohol Use: No Tobacco Use: No Substance Use: No Allergies-Medications (Allergen,Severity, Reaction): Coded Allergies: No Known Allergies (Unverified , 10/28/17) Reported Meds & Prescriptions Reported Meds & Active Scripts Active Calcium Gluconate 45 Mg Calcium (500 Mg) Tab 500 Mg PO TID 7 Days 1 gram of salt is 93 mg elemental calcium. Reported Keppra (Levetiracetam) 750 Mg Tab 750 Mg PO HS Keppra (Levetiracetam) 500 Mg Tab 500 Mg PO DAILY Review of Systems Except as stated in HPI: all other systems reviewed are Neg General / Constitutional: No: Fever Eyes: No: Visual changes HENT: No: Headaches Cardiovascular: No: Chest Pain or Discomfort Respiratory: No: Shortness of Breath Gastrointestinal: No: Abdominal Pain Genitourinary: No: Dysuria Musculoskeletal: No: Pain Skin: No Rash Neurologic: Positive: Seizures, No: Weakness, Focal Abnormalities, Change in Mentation, Slurred Speech, Sensory Disturbance Psychiatric: No: Depression Endocrine: No: Polydipsia Hematologic/Lymphatic: No: Easy Bruising Physical Exam Narrative General: The patient is a well-developed well-nourished male in no acute distress. Head and Neck exam: Head is normocephalic atraumatic. Eyes: EOMI, pupils are equal round and reactive to light. Nose: Midline septum with pink mucous membranes Mouth: Dentition unremarkable. Moist mucus membranes. Posterior oropharynx is not erythematous. No tonsillar hypertrophy. Uvula midline. Airway patent. No evidence of trauma to the tongue. Neck: No palpable lymphadenopathy. No nuchal rigidity. No thyromegaly. Cardiovascular: Sinus tachycardia in the low 100 without murmurs, gallops, or rubs. No pulse deficit to the extremities on simultaneous auscultation and palpation of his radial artery. Lungs: Clear to auscultation bilaterally. No wheezes, rhonchi, or rales. Abdomen: Soft, without tenderness to palpation in all 4 quadrants of the abdomen. No guarding, rebound, or rigidity. Normal bowel sounds are audible. No tenderness on palpation of McBurney's point. Negative Zepeda sign. Extremities: No clubbing, cyanosis, or edema. 2+ pulses in all 4 extremities. No calf tenderness on palpation peer Back: No spinous process tenderness to palpation. No costovertebral angle tenderness to palpation. Neurologic Exam: Grossly nonfocal. The patient has a speech impediment, however the patient has a history of this. Skin Exam: No rash noted. Intact skin that is warm and dry. Data Data Last Documented VS Vital Signs Date Time Temp Pulse Resp B/P (MAP) Pulse Ox O2 Delivery O2 Flow Rate FiO2 10/28/17 06:05 10/28/17 05:36 93 16 97 Room Air 10/28/17 02:27 98.2 Orders Orders Complete Blood Count With Diff (10/28/17 02:49) Comprehensive Metabolic Panel (10/28/17 02:49) Urinalysis - C+S If Indicated (10/28/17 02:49) Magnesium (Mg) (10/28/17 02:49) Iv Access Insert/Monitor (10/28/17 02:49) Ecg Monitoring (10/28/17 02:49) Oximetry (10/28/17 02:49) Drug Screen, Random Urine (10/28/17 02:49) Alcohol (Ethanol) (10/28/17 02:49) Sodium Chlorid 0.9% 500 Ml Inj (Ns 500 M (10/28/17 03:00) Calcium Carbonate (Oscal) (10/28/17 05:30) Labs Laboratory Tests Test 10/28/17 02:53 10/28/17 05:30 White Blood Count 5.1 TH/MM3 Red Blood Count 4.07 MIL/MM3 Hemoglobin 12.6 GM/DL Hematocrit 35.5 % Mean Corpuscular Volume 87.3 FL Mean Corpuscular Hemoglobin 30.9 PG Mean Corpuscular Hemoglobin Concent 35.4 % Red Cell Distribution Width 13.0 % Platelet Count 222 TH/MM3 Mean Platelet Volume 8.7 FL Neutrophils (%) (Auto) 59.2 % Lymphocytes (%) (Auto) 29.3 % Monocytes (%) (Auto) 9.0 % Eosinophils (%) (Auto) 1.8 % Basophils (%) (Auto) 0.7 % Neutrophils # (Auto) 3.0 TH/MM3 Lymphocytes # (Auto) 1.5 TH/MM3 Monocytes # (Auto) 0.5 TH/MM3 Eosinophils # (Auto) 0.1 TH/MM3 Basophils # (Auto) 0.0 TH/MM3 CBC Comment DIFF FINAL Differential Comment Blood Urea Nitrogen 14 MG/DL Creatinine 0.82 MG/DL Random Glucose 84 MG/DL Total Protein 6.3 GM/DL Albumin 3.6 GM/DL Calcium Level 7.8 MG/DL Magnesium Level 1.9 MG/DL Alkaline Phosphatase 48 U/L Aspartate Amino Transf (AST/SGOT) 13 U/L Alanine Aminotransferase (ALT/SGPT) 20 U/L Total Bilirubin 0.4 MG/DL Sodium Level 143 MEQ/L Potassium Level 3.6 MEQ/L Chloride Level 110 MEQ/L Carbon Dioxide Level 25.2 MEQ/L Anion Gap 8 MEQ/L Estimat Glomerular Filtration Rate 119 ML/MIN Ethyl Alcohol Level LESS THAN 3 MG/DL Urine Color LIGHT-YELLOW Urine Turbidity CLEAR Urine pH 5.5 Urine Specific [place] 1.021 Urine Protein TRACE mg/dL Urine Glucose (UA) NEG mg/dL Urine Ketones 10 mg/dL Urine Occult Blood TRACE Urine Nitrite NEG Urine Bilirubin NEG Urine Urobilinogen LESS THAN 2.0 MG/DL Urine Leukocyte Esterase NEG Urine WBC LESS THAN 1 /hpf Urine Mucus FEW /lpf Microscopic Urinalysis Comment CULT NOT INDICATED Urine Opiates Screen NEG Urine Barbiturates Screen NEG Urine Amphetamines Screen NEG Urine Benzodiazepines Screen NEG Urine Cocaine Screen NEG Urine Cannabinoids Screen NEG MDM Medical Decision Making Medical Screen Exam Complete: Yes Emergency Medical Condition: Yes Medical Record Reviewed: Yes Differential Diagnosis Seizure activity related to electrolyte disturbances, versus lowered seizure threshold from difficulty sleeping, versus medication noncompliance Narrative Course During the course of the patient's emergency department visit, the patient's history, examination, and differential diagnosis were reviewed with the patient. The patient was placed on a school bus monitor with oximetry and frequent blood pressure monitoring. The patient had IV access obtained and blood work sent for analysis. The patient was initially provided normal saline 500 mL bolus 1. The patient's laboratory studies were reviewed and remarkable for a white count of 5.1, hemoglobin 12.6, platelets 222 with 9 monocytes, CMP is remarkable for chloride of 110, calcium 7.8. Urine drug screen is negative, alcohol level less than 3. Urinalysis shows 10 ketones otherwise unremarkable. The patient was given a calcium supplement calcium carbonate 500 mg p.o. 1 for mild hypocalcemia. He was given a prescription for calcium at discharge. The patient will be discharged home to follow-up with his neurologist regarding this emergency department visit and consideration of altering his Keppra dose. The patient is resting comfortably and feels better, is alert and in no distress. The patient's results and examination findings were discussed with the patient. The repeat examination is unremarkable and benign. The history, exam, diagnostic testing, and current condition do not suggest any significant pathology to warrant further testing, continued ED treatment, admission, or surgical evaluation at this point. The vital signs have been stable. The patient does not have uncontrollable pain, intractable vomiting, or other significant symptoms. The patient's condition is stable and appropriate for discharge. The patient will pursue further outpatient evaluation with a primary care physician or other designated or consulting physician as indicated in the discharge instructions. The patient expressed understanding and was agreeable with this plan. Diagnosis Primary Impression: Seizure disorder Additional Impression: Hypocalcemia Referrals: Brianne Childers MD 2 days Patient Instructions: General Instructions, Generalized Tonic Clonic Seizures ( ED), Hypocalcemia (ED) Med/Other Pt SpecificInfo: Prescription(s) given, No Change to Meds Scripts Calcium Gluconate (Calcium Gluconate) 45 Mg Calcium (500 Mg) Tab 500 MG PO TID for Calcium Supplement for 7 Days, TAB 0 Refills 1 gram of salt is 93 mg elemental calcium. Prov: Mona De Leon MD 10/28/17 Disposition: 01 DISCHARGE HOME Condition: Stable Mona De Leon MD Oct 28, 2017 02:53
[2017-10-28] MEDS ORDERED: SODIUM CHLORID 0.9% 500 ML INJ 500 ML IV ONE (03:00)
[2017-10-28 03:20] LABS: BASOPHIL % 0.7 % (0.0-2.0); EOSINOPHIL # 0.1 TH/MM3 (0-0.4); EOSINOPHIL % 1.8 % (0.0-4.0); HEMATOCRIT 35.5 % (39.0-51.0); HEMOGLOBIN 12.6 GM/DL (13.0-17.0); LYMPH % 29.3 % (9.0-44.0); LYMPHOCYTE # 1.5 TH/MM3 (1.0-4.8); MEAN CELL VOLUME 87.3 FL (80.0-100.0); MEAN CORPUSCULAR HEMOGLOBIN 30.9 PG (27.0-34.0); MEAN CORPUSCULAR HGB CONC 35.4 % (32.0-36.0); MEAN PLATELET VOLUME 8.7 FL (7.0-11.0); MONOCYTE # 0.5 TH/MM3 (0-0.9); NEUT % 59.2 % (16.0-70.0); PLATELET COUNT 222 TH/MM3 (150-450); RED BLOOD COUNT 4.07 MIL/MM3 (4.50-5.90); WHITE BLOOD COUNT 5.1 TH/MM3 (4.0-11.0)
[2017-10-28 03:31] LABS: ALBUMIN 3.6 GM/DL (3.4-5.0); ALT (GPT) 20 U/L (12-78); AST (GOT) 13 U/L (15-37); BICARBONATE 25.2 MEQ/L (21.0-32.0); BLOOD UREA NITROGEN 14 MG/DL (7-18); CALCIUM 7.8 MG/DL (8.5-10.1); CHLORIDE 110 MEQ/L (98-107); CREATININE 0.82 MG/DL (0.60-1.30); GLOMERULAR FILTRATION RATE 119 ML/MIN (>89); GLUCOSE,RANDOM 84 MG/DL (74-106); MAGNESIUM 1.9 MG/DL (1.5-2.5); SODIUM (NA) 143 MEQ/L (136-145)
[2017-10-28 03:34] LABS: ALKALINE PHOSPHATASE 48 U/L (45-117); TOTAL BILIRUBIN ADULT 0.4 MG/DL (0.2-1.0); TOTAL PROTEIN 6.3 GM/DL (6.4-8.2)
[2017-10-28] MEDS ORDERED: CALCIUM GLUCONATE 500 MG TAB PO ONE (05:00)
[2017-10-28] MEDS ORDERED: CALCIUM CARBONATE 1.25 GM (CA 500 MG) TAB PO ONE (05:30)
[2017-10-28 05:36] VITALS: BP 112/63; PULSE 93; RESP 16; O2SAT 97
[2017-10-28 05:43] LABS: BILIRUBIN, URINE NEG (NEG); BLOOD, URINE TRACE (NEG); GLUCOSE,URINE NEG (NEG); KETONE, URINE 10 mg/dL (NEG); MUCUS URINE FEW /lpf (OCC); NITRITE,URINE NEG (NEG); PH, URINE 5.5 (5.0-8.5); URINE COLOR LIGHT-YELLOW (YELLW/STRAW); URINE LEUKOCYTE ESTERASE NEG (NEG)
[2017-10-28] MEDS ORDERED: CALG500 PO (05:47)
== END 2017-10-28 06:18 | disposition home or self-care (01) ==
LOC: NEPC 02:18
DX: G40.909 Epilepsy, unspecified, not intractable, without status epilepticus (principal); E83.51 Hypocalcemia
CPT/HCPCS: 80053; 80307; 81001; 83735; 85025; 96360; 96361; 99284; J7040